=== PATIENT | male | born 1985 | race Caucasian/White ===

== ENCOUNTER 2023-03-30 03:21 | Emergency (ER) | payer OTHER ==
[~2023-03-30] VITALS: Ht 177.8 cm; Wt 70.0 kg
[2023-03-30 03:34] VITALS: BP 160/90; PULSE 105; RESP 18; TEMP 98.5; O2SAT 98
[2023-03-30] MEDS ORDERED: ACETAMINOPHEN 325MG TABLET PO ONE (03:45)
== END 2023-03-30 08:13 | disposition home or self-care (01) ==
LOC: ER 03:21
DX: S80.12XA Contusion of left lower leg, initial encounter (principal); Y08.89XA Assault by other specified means, initial encounter; Y93.89 Activity, other specified; Y92.89 Other specified places as the place of occurrence of the external cause; Y99.8 Other external cause status
CPT/HCPCS: 99284

== ENCOUNTER 2023-03-31 05:21 | Emergency (ER) | payer OTHER ==
[~2023-03-31] VITALS: Ht 177.8 cm; Wt 82.0 kg
[2023-03-31 06:09] VITALS: RESP 18; TEMP 98; O2SAT 98
[2023-03-31 06:11] VITALS: BP 133/81; PULSE 95
== END 2023-03-31 09:31 | disposition left against medical advice (07) ==
LOC: ER 05:21
DX: T76.21XA Adult sexual abuse, suspected, initial encounter (principal); Z53.21 Procedure and treatment not carried out due to patient leaving prior to being seen by health care provider; X58.XXXA Exposure to other specified factors, initial encounter; Y93.89 Activity, other specified; Y92.89 Other specified places as the place of occurrence of the external cause; Y99.8 Other external cause status
CPT/HCPCS: 99281